=== PATIENT | female | born 1985 ===

== ENCOUNTER 2018-08-25 05:08 | Day surgery (SDC) | payer OTHER | END 2018-08-25 16:05 | disposition home or self-care (01) | LOC: CIR.AMB 05:08 | DX: N93.8 Other specified abnormal uterine and vaginal bleeding (principal); Z30.432 Encounter for removal of intrauterine contraceptive device ==

== ENCOUNTER 2019-08-10 13:13 | Emergency (ER) | payer OTHER ==
[~2019-08-10] VITALS: Ht 157.5 cm; Wt 116.1 kg
[2019-08-10] MEDS ORDERED: LABETALOL HCL200 MG (13:42)
[2019-08-10] MEDS ORDERED: PRENA1 TRUE CO1 EACH (13:42)
[2019-08-10] MEDS ORDERED: OSEL75CA PO (16:55)
== END 2019-08-10 17:36 | disposition home or self-care (01) ==
LOC: ER 13:13
DX: O98.512 Other viral diseases complicating pregnancy, second trimester (principal); J11.1 Influenza due to unidentified influenza virus with other respiratory manifestations; Z34.82 Encounter for supervision of other normal pregnancy, second trimester

== ENCOUNTER 2019-09-17 10:43 | Inpatient (IN) | payer OTHER ==
[~2019-09-17] VITALS: Ht 157.5 cm; Wt 112.5 kg
[~2019-09-17 10:43] MED LIST: LABETALOL HCL200 MG; OSEL75CA PO; PRENA1 TRUE CO1 EACH
== END 2019-09-21 10:06 | disposition home or self-care (01) | DRG 833 ==
LOC: LDR 10:43 → OB/GYN 10:43
PROVIDERS: ADMIT Obstetrics & Gynecology
PROC: 4A1HXCZ Monitoring of Products of Conception, Cardiac Rate, External Approach (ICD-10-PCS; principal; 2019-09-17)
PROC: BY4FZZZ Ultrasonography of Third Trimester, Single Fetus (ICD-10-PCS; 2019-09-17)
DX: O24.410 Gestational diabetes mellitus in pregnancy, diet controlled (principal); O13.3 Gestational [pregnancy-induced] hypertension without significant proteinuria, third trimester; O34.211 Maternal care for low transverse scar from previous cesarean delivery; O09.523 Supervision of elderly multigravida, third trimester; O26.843 Uterine size-date discrepancy, third trimester
CPT/HCPCS: 240

== ENCOUNTER 2019-11-05 11:11 | Inpatient (IN) | payer OTHER ==
[~2019-11-05] VITALS: Ht 157.5 cm; Wt 3.2 kg
[2019-11-13] MEDS ORDERED: LABETALOL HCL100 MG PO (11:32)
[2019-11-13] MEDS ORDERED: PRENAT PO (11:33)
[2019-11-16] MEDS ORDERED: PRENATAL + DHA1 EAC1 PO (08:44)
== END 2019-11-18 10:01 | disposition home or self-care (01) | DRG 785 ==
LOC: O/R 11-16 06:00 → OB/GYN 11-16 06:00
PROVIDERS: ADMIT Obstetrics & Gynecology
PROC: 0UB70ZZ Excision of Bilateral Fallopian Tubes, Open Approach (ICD-10-PCS; 2019-11-16)
PROC: 4A1HXFZ Monitoring of Products of Conception, Cardiac Rhythm, External Approach (ICD-10-PCS; 2019-11-16)
PROC: 3E033VJ Introduction of Other Hormone into Peripheral Vein, Percutaneous Approach (ICD-10-PCS; 2019-11-16)
PROC: 10D00Z1 Extraction of Products of Conception, Low, Open Approach (ICD-10-PCS; principal; 2019-11-16 07:00)
DX: O13.4 Gestational [pregnancy-induced] hypertension without significant proteinuria, complicating childbirth (principal); O34.211 Maternal care for low transverse scar from previous cesarean delivery; O24.420 Gestational diabetes mellitus in childbirth, diet controlled; Z3A.38 38 weeks gestation of pregnancy; Z37.0 Single live birth; Z30.2 Encounter for sterilization